=== PATIENT | female | born 1965 | race Caucasian/White ===

== ENCOUNTER 2020-02-26 08:02 | Outpatient (CLI) | payer OTHER, SELFPAY ==
--- NOTE | ~2020-02-26 | MM_ITS ---
EXAMINATION: MM screening [facility] BI w roxana HISTORY: Screening mammogram TECHNIQUE: Craniocaudal and mediolateral oblique 3-D tomosynthesis images were obtained and synthetic 2-D images were generated. CAD analysis was submitted and interpreted. COMPARISON: 11/23/2018, 11/18/2017, 11/08/2016 BREAST PARENCHYMAL COMPOSITION: The breasts are heterogeneously dense, which may obscure small masses . FINDINGS: There is no evidence of suspicious mass, calcification, or architectural distortion to sugg est malignancy in either breast. There has been no suspicious interval change. IMPRESSION: 1. No mammographic evidence of malignancy. 2. Recommend routine screening mammography in one year. BI-RADS Category 1: Negative Reviewed, dictated and finalized at location A.
== END 2020-02-26 08:03 | disposition home or self-care (01) ==
LOC: ANHIMG 08:06
PROVIDERS: PCP Family Medicine; Visit Provider Obstetrics & Gynecology
DX: Z12.31 Encounter for screening mammogram for malignant neoplasm of breast (principal)
CPT/HCPCS: 77063; 77067

== ENCOUNTER → 2022-08-26 11:34 | Outpatient (CLI) | payer BC, SELFPAY ==
--- NOTE | ~2022-08-26 | CT_ITS ---
EXAMINATION: CT abdomen pelvis wo con DATE: 08/26/2022 11:51 INDICATION: History of renal stones. TECHNIQUE: Computed tomography (CT) of the abdomen and pelvis was performed without intravenous contr ast. The dose-length product was 830.50 mGy-cm. Automated exposure control and iterative reconstructi on technique were employed. COMPARISON: None. FINDINGS: Lung bases are unremarkable. No significant pleural or pericardial effusion. Heart size is normal. There is a 3.6 cm liver cyst of the right lobe inferiorly. 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 There are gallstones. No ureteral stones. Bladder i s unremarkable. Nonobstructive bowel gas pattern. Small hiatal hernia. No significant vascular abnorm ality. No lymphadenopathy. Normal appendix. Mild lumbar spondylosis. IMPRESSION: 1. No acute abdominal abnormality. 2: Cholelithiasis. Reviewed, dictated and finalized at location B. 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
--- NOTE | ~2022-08-26 | XR_ITS ---
XR abdomen/kub 1V 08/26/2022 12:22 Indication: History of kidney stones Procedure: KUB Comparison: CT dated 08/26/2022 Findings: There there multiple phleboliths overlying the abdomen and pelvis. Nonobstructive bowel gas pattern. Nonobstructive bowel gas pattern. No acute osseous abnormality. Impression: 1: No acute abdominal abnormality. Reviewed, dictated and finalized at location B. 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
== END ==
PROVIDERS: PCP Family Medicine; Visit Provider Urology
DX: Z87.442 Personal history of urinary calculi (principal); K80.20 Calculus of gallbladder without cholecystitis without obstruction
CPT/HCPCS: 74018; 74176

== ENCOUNTER 2023-11-27 15:35 | Outpatient (CLI) | payer BC, SELFPAY ==
--- NOTE | ~2023-11-27 | MR_ITS ---
EXAMINATION: MR knee RT wo con DATE: 11/27/2023 16:06 INDICATION: Right knee pain TECHNIQUE: Magnetic resonance imaging (MRI) of the right knee was performed without intravenous contr ast. Sequences included coronal PD-weighted FSE, coronal PD-weighted FS FSE, sagittal T2-weighted FS E, sagittal PD-weighted FS FSE and axial PD weighted fat saturated FSE. COMPARISON: None. FINDINGS: Medial compartment: Medial meniscus is normal. Articular cartilage is normal. Lateral compartment: Complex tear of the anterior horn and body of the medial meniscus. Partial-thickness chondral ulcerat ion along the anterior to central weightbearing lateral femoral condyle and lateral tibial plateau wh ich is full/near full-thickness with mild underlying subarticular edema-like signal change along the lateral margin of both sides of the joint space. There is an additional small region of focal thickne ss chondral ulceration with subtle underlying cortical irregularity and edema-like signal change at t he central aspect of the posterior weightbearing lateral femoral condyle. Patellofemoral compartment: Partial-thickness chondral ulceration with deep fissuring and mild underlying cystlike change at the central aspect of the patellar apical ridge. Shallow chondral ulceration along the inferior aspect of the trochlear groove and medial trochlea. Ligaments and tendons: Anterior and posterior cruciate ligaments are normal. The medial collateral ligament and fibular rivas ateral ligament complex are normal. Patellar tendon is normal. Mild distal quadriceps tendinopathy wi thout tear. The visualized medial and lateral hamstring tendons as well as the iliotibial band are no rmal. Fluid: Moderate-sized right knee joint effusion along with mild synovitis at the suprapatellar pouch. 11 x 7 x 5 mm loose osteochondral body surrounding by small amount of fluid in the popliteal recess. Osseous/other: Bone alignment is normal. No fracture or pathologic marrow replacing process. IMPRESSION: 1. Complex lateral meniscal tear with severe osteoarthritis with high-grade chondromalacia in the lat eral compartment. 2. Mild osteoarthritis with small regions of moderate to high-grade patellar and moderate grade troch lear chondromalacia. 2. Moderate-sized right knee joint effusion. Reviewed, dictated and finalized at location A. IMPRESSION: 1. Complex lateral meniscal tear with severe osteoarthritis with high-grade cho ndromalacia in the lateral compartment. 2. Mild osteoarthritis with small regions of moderate to high-grade patellar an d moderate grade trochlear chondromalacia. 2. Moderate-sized right knee joint effusion.
== END 2023-11-27 15:36 ==
LOC: GOSHIMG 15:36
PROVIDERS: PCP Family Medicine; Visit Provider Orthopaedic Surgery
DX: M17.11 Unilateral primary osteoarthritis, right knee (principal); M25.461 Effusion, right knee; S83.271A Complex tear of lateral meniscus, current injury, right knee, initial encounter; X58.XXXA Exposure to other specified factors, initial encounter
CPT/HCPCS: 73721